=== PATIENT | male | born 1955 | race Caucasian/White ===

== ENCOUNTER → 2019-09-24 | Outpatient (CLI) | payer MEDICAID ==
[2019-09-24 14:45] LABS: Appearance,Urine Clear (Clear); Bilirubin,Urine Negative (Negative); Blood,Urine Negative (Negative); Color,Urine Yellow; Glucose,Urine (UA) Negative (Negative); Ketones,Urine Negative (Negative); Leukocyte Esterase,Urine Negative (Negative); Nitrite,Urine Negative (Negative); Protein,Urine Trace (Negative); Specific Gravity,Urine 1.029 (1.001-1.035); Urobilinogen,Urine <2.0 mg/dL (<2.0)
[2019-09-24 14:57] LABS: Basophils % (A) 0 %; Eosinophils # (A) 0.3 k/uL (0-0.7); Eosinophils % (A) 3 %; HCT 46.5 % (39.0-53.0); HGB 15.3 gm/dL (13.0-17.5); Lymphocytes # (A) 2.3 k/uL (1.0-4.8); Lymphocytes % (A) 27 %; MCH 30.5 pg (25.0-35.0); MCHC 32.9 g/dL (31.0-37.0); MCV 92.6 fL (80.0-100.0); Mean Platelet Volume 7.7; Monocytes # (A) 0.3 k/uL (0-1.0); Monocytes % (A) 4 %; Neutrophils # (A) 5.6 k/uL (1.3-7.7); Neutrophils % (A) 64 %; Platelet Count 229 k/uL (150-450); RBC 5.02 m/uL (4.30-5.90); RDW 11.9 % (11.5-15.5); WBC 8.7 k/uL (3.8-10.6)
--- NOTE | 2019-09-24 15:31 | US ---
EXAMINATION TYPE: US abdomen limited DATE OF EXAM: 09/24/2019 COMPARISON: NONE CLINICAL HISTORY: R10.11 RT UPPER QUADRANT PAIN. EXAM MEASUREMENTS: Liver Length: 13.6 cm Gallbladder Wall: .3 cm CBD: .3 cm Right Kidney: 9.4 x 4.1 x 3.7 cm Pancreas: Head and body appear normal Tail obscured by overlying bowel gas Liver: wnl Gallbladder: Polyps visualized. Evidence for sonographic Cintron's sign: No CBD: wnl Right Kidney: wnl IMPRESSION: 1. Gallbladder polyps
[2019-09-24 18:31] LABS: Albumin 4.3 g/dL (3.80-4.90); Albumin/Globulin Ratio 1.95 (1.60-3.17); Anion Gap 9.4 mmol/L (4.00-12.00); BUN/Creat Ratio 17.78 Ratio (12.00-20.00); Calcium 9.3 mg/dL (8.7-10.3); Carbon Dioxide 24.6 mmol/L (21.6-31.8); Globulin 2.2 g/dL (1.6-3.3); Non-African American GFR(CKD) 90.6 (60.0-200.0); Potassium 4.2 mmol/L (3.5-5.5); Total Bilirubin 0.4 mg/dL (0.2-1.2); Total Protein 6.5 g/dL (6.2-8.2)
== END | disposition home or self-care (01) ==
LOC: LABWHC1 14:10
PROVIDERS: ATTEND Nurse Practitioner Family
DX: R10.11 Right upper quadrant pain (principal); K82.4 Cholesterolosis of gallbladder
CPT/HCPCS: 36415; 76705; 80053; 81003; 82150; 83690; 85025

== ENCOUNTER → 2019-10-30 | Outpatient (CLI) | payer MEDICAID ==
[2019-10-30 09:59] LABS: HGB 15.3 gm/dL (13.0-17.5); MCH 30.8 pg (25.0-35.0); MCHC 33.2 g/dL (31.0-37.0); MCV 92.8 fL (80.0-100.0); Mean Platelet Volume 7.4; Platelet Count 224 k/uL (150-450); RBC 4.96 m/uL (4.30-5.90); RDW 12.2 % (11.5-15.5); WBC 8.2 k/uL (3.8-10.6)
[2019-10-30 17:33] LABS: Chol/HDL Ratio 4.78; LDL Cholesterol,Calculated 101.2 mg/dL (0.0-131.0); VLDL Calculation 49.8 mg/dL (5.00-40.00)
== END | disposition home or self-care (01) ==
LOC: LABWHC1 09:27
PROVIDERS: ATTEND Family Medicine
DX: Z00.01 Encounter for general adult medical examination with abnormal findings (principal); Z13.9 Encounter for screening, unspecified
CPT/HCPCS: 36415; 80061; 84153; 85027; 86803

== ENCOUNTER → 2019-11-02 | Outpatient (CLI) | payer MEDICAID | END | disposition home or self-care (01) | LOC: LABWHC1 11:06 | PROVIDERS: ATTEND Surgery Plastic and Reconstructive Surgery | DX: K80.20 Calculus of gallbladder without cholecystitis without obstruction (principal) | CPT/HCPCS: 36415; 93005 ==

== ENCOUNTER → 2019-12-23 | Outpatient (CLI) | payer MEDICAID | END | disposition home or self-care (01) | LOC: LABWHC1 07:02 | PROVIDERS: ATTEND Surgery Plastic and Reconstructive Surgery | DX: U07.1 COVID-19 (principal) | CPT/HCPCS: 87635 ==

== ENCOUNTER 2019-12-27 08:32 | Day surgery (SDC) | payer MEDICAID ==
[2019-12-24 09:58] VITALS: BMI 23.6
--- NOTE | 2019-12-26 20:21 | P.GSHP ---
History of Present Illness H&P Date: 12/27/19 CHIEF COMPLAINT: History of gallstones. HISTORY OF PRESENT ILLNESS: Дмитрий Knowles is a 64-year-old male who comes in fairly fit. 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 He reports right upper quadrant abdominal pain. As a result, he presents to me in consultation. He also reports having an ultrasound, hence his presentation today. No alleviating factors. PAST MEDICAL HISTORY: See list. PAST SURGICAL HISTORY: See list. MEDICATIONS: See list. ALLERGIES: See list. SOCIAL HISTORY: See list. FAMILY HISTORY: See list. REVIEW OF ORGAN SYSTEMS: Additionally reports: Gastrointestinal: Reports epigastric abdominal pain. Genitourinary: History of prostate cancer treated with experimental drugs. Reports troubles with urination and is on Flomax. HEENT: History of glaucoma. Wears glasses. CONSTITUTIONAL: No fevers or chills. No recent weight loss. EYES: Denies any trouble with vision. No glasses. RESPIRATORY: Denies pneumonia. Denies any troubles with breathing or dyspnea on exertion. CARDIOVASCULAR: Denies any chest pain, palpitations, or recent heart attacks. NEUROLOGICAL: Denies any numbness or tingling along the distal extremities. No seizure disorders or headaches. MUSCULOSKELETAL: Denies any back pain, stiffness or joint arthritis. SKIN: No current skin cancer. No rash. PSYCHIATRIC: Denies current depression or suicidal thoughts. ENDOCRINE: Denies current thyroid disorders. Denies any blood sugar glucose intolerance. HEME/LYMPHATIC: Denies any lumps and bumps around the neck. No recent deep venous thrombosis. ALLERGY/IMMUNOLOGY: No immunoglobulin therapy. No immune deficiencies. BREAST: Denies current breast lumps, pain or nipple discharge. PHYSICAL EXAM: Patient is a 64-year-old male. CONSTITUTIONAL: Well developed and in no acute distress. Vitals reviewed. EYES: Conjuctivae without sclera icterus. Pupils are equally round and reactive to light. Extraocular movements grossly intact. HEAD, EARS, NOSE, THROAT: Moist buccal mucosa. Head is atraumatic, normocephalic. Hears conversational speech. No nasal drainage. NECK: Supple. No JV distention. No thyroidomegaly. RESPIRATORY: Non-labored respirations and equal bilateral excursions. No gross wheezes. CARDIOVASCULAR: Regular rate and rhythm. Extremities without moderate edema. Palpable 2+ radial pulses. ABDOMEN: No hepatomegaly. Soft. Non-tender. Nondistended. LYMPH: No neck lymphadenopathy. No axillary lymphadenopathy. MUSCULOSKELETAL: Nail and fingers with good capillary refill. SKIN: Warm and well perfused with good skin turgor. NEUROLOGIC: Cranial nerves I through XII grossly intact. Sensation upper and extremities intact. No focal or lateralizing signs. PSYCH: Appropriate affect. Alert and oriented to person, place and time. Displays appropriate insight. STUDIES: Ultrasound of the gallbladder was independently reviewed and demonstrated multiple echogenic foci including dependent and non-dependent portion of his gallbladder. LABORATORY: Reviewed and LFTs were within normal limits. Triglycerides were elevated at 249. Hepatitis was normal. Hemoglobin was within normal limits. ASSESSMENT: 1. Gallbladder polyps. 2. Gallstones. PLAN: 1. Robotic cholecystectomy was described. 2. He is at slightly elevated risk for perioperative complications, especially with family history of heart disease. Past Medical History Past Medical History: Eye Disorder, Prostate Disorder Additional Past Medical History / Comment(s): BILAT GLAUCOMA. GALLBLADDER DISORDER History of Any Multi-Drug Resistant Organisms: None Reported Past Surgical History: Hernia Repair, Orthopedic Surgery Additional Past Surgical History / Comment(s): RT KNEE SCOPE Past Anesthesia/Blood Transfusion Reactions: No Reported Reaction Smoking Status: Former smoker - Past Family History Mother Family Medical History: No Reported History Medications and Allergies Home Medications Medication Instructions Recorded Confirmed Type Eye Drops 1 drop BOTH EYES HS 12/24/19 History Tamsulosin [Flomax] 0.4 mg PO DAILY 12/24/19 12/24/19 History Allergies Allergy/AdvReac Type Severity Reaction Status Date / Time mushroom AdvReac Nausea & Verified 12/24/19 09:48 Vomiting procaine [From Novocain] AdvReac Nausea & Verified 12/24/19 09:48 Vomiting
[~2019-12-27 08:32] MED LIST: ACETAMINOPHEN TAB 500 MG TAB PO STA; DEXAMETHASONE SOD PHOSPHATE 10 MG/ML 1 ML VIAL IV ONE; GABAPENTIN 300 MG CAP PO STA; HEPARIN SODIUM,PORCINE 5,000 UNIT/ML 1 ML VIAL SQ ONE; HYDROmorphone 0.5 MG/0.5 ML SYRINGE IVP PRN; INDOCYANINE GREEN 25 MG VIAL IV STA; LACTATED RINGERS 1,000 ML IV SCH; LIDOCAINE 1% (10MG/ML) FOR IV START INTRADERMA PRN; ONDANSETRON 4 MG/2 ML VIAL IVP ONE; TAMSULOSIN 0.4 MG CAP.ER.24H PO STA
[2019-12-27 09:21] LABS: Basophils % (A) 1 %; Eosinophils # (A) 0.4 k/uL (0-0.7); Eosinophils % (A) 5 %; HCT 46.6 % (39.0-53.0); HGB 15.2 gm/dL (13.0-17.5); Lymphocytes % (A) 26 %; MCH 30.4 pg (25.0-35.0); MCHC 32.6 g/dL (31.0-37.0); MCV 93.2 fL (80.0-100.0); Mean Platelet Volume 7.6; Monocytes # (A) 0.4 k/uL (0-1.0); Monocytes % (A) 5 %; Neutrophils # (A) 4.7 k/uL (1.3-7.7); Neutrophils % (A) 61 %; Platelet Count 234 k/uL (150-450); RBC 5.01 m/uL (4.30-5.90); RDW 12.3 % (11.5-15.5); WBC 7.8 k/uL (3.8-10.6)
[2019-12-27 09:25] VITALS: RESP 16
[2019-12-27 09:37] LABS: ALT 24 U/L (4-49); AST 25 U/L (17-59); African American GFR (CKD) >90 (>60 ml/min/1.73 sqM); Albumin 4.1 g/dL (3.5-5.0); Alkaline Phosphatase 84 U/L (38-126); Anion Gap 8 mmol/L; Blood Urea Nitrogen 18 mg/dL (9-20); Calcium 8.9 mg/dL (8.4-10.2); Carbon Dioxide 22 mmol/L (22-30); Chloride 108 mmol/L (98-107); Glucose 101 mg/dL (74-99); Non-African American GFR(CKD) 89 (>60 ml/min/1.73 sqM); Potassium 4.8 mmol/L (3.5-5.1); Sodium 138 mmol/L (137-145); Total Bilirubin 0.4 mg/dL (0.2-1.3); Total Protein 7.3 g/dL (6.3-8.2)
[2019-12-27] MEDS ORDERED: KETOROLAC 30 MG/ML 1 ML VIAL ONE (09:42)
[2019-12-27] MEDS ORDERED: LIDOCAINE 1% INJ 10MG/ML (20 ML MDV) ONE (09:42)
[2019-12-27] MEDS ORDERED: fentaNYL (PF) 50 MCG/ML 2 ML AMP ONE (09:42)
[2019-12-27] MEDS ORDERED: ROCURONIUM BROMIDE 10 MG/ML 5 ML VIAL IV ONE (09:42)
[2019-12-27] MEDS ORDERED: ONDANSETRON 4 MG/2 ML VIAL ONE (09:42)
[2019-12-27] MEDS ORDERED: ePHEDrine SULFATE/0.9% NACL/PF 50 MG/5 ML SYRINGE IV ONE (09:42)
[2019-12-27] MEDS ORDERED: SUCCINYLCHOLINE CHLORIDE 100 MG/5 ML SYR IV ONE (09:42)
[2019-12-27] MEDS ORDERED: PROPOFOL 10 MG/ML 20 ML VIAL IV ONE (09:42)
[2019-12-27] MEDS ORDERED: GLYCOPYRROLATE 0.2 MG/ML 2 ML VIAL ONE (09:42)
[2019-12-27] MEDS ORDERED: INDOCYANINE GREEN 25 MG VIAL IV ONE (09:42)
[2019-12-27] MEDS ORDERED: MIDAZOLAM 2 MG/2 ML VIAL ONE (09:42)
[2019-12-27] MEDS ORDERED: NEOSTIGMINE 1 MG/ML 10 ML VIAL ONE (09:42)
[2019-12-27] MEDS ORDERED: BUPIVACAIN-EPI 0.25%-1:200,000 30 ML VIAL SQ ONE ×2 (10:01→10:05)
[2019-12-27 10:53] VITALS: TEMP 97.2
[2019-12-27 12:25] VITALS: BP 143/71; PULSE 67
--- NOTE | 2019-12-29 19:05 | P.OP ---
Date of Procedure: 12/27/19 Description of Procedure: SURGEON: TAYLOR MARES MD PREOPERATIVE DIAGNOSES: 1. Right upper quadrant abdominal pain 2. Symptomatic gallstones 3. Chronic cholecystitis 4. Obstructive uropathy POSTOPERATIVE DIAGNOSES: 1. Right upper quadrant abdominal pain 2. Symptomatic gallstones 3. Chronic cholecystitis 4. Obstructive uropathy OPERATION: Robotic-assisted da Ari Xi laparoscopic cholecystectomy, multiport with FIREFLY ESTIMATED BLOOD LOSS: 5 mL. SPECIMENS REMOVED: Gallbladder. COMPLICATIONS: None. OPERATIVE FINDINGS: 1. Chronic cholecystitis INDICATIONS: The patient is a 64-year-old male who presents with cholelcystitis. Surgical intervention with a laparoscopic cholecystectomy was described. Robotic assisted laparoscopic approach was described. Benefits and risks of the procedure including but not limited to bleeding, infection, injury to the biliary tree was described. Informed consent was obtained. DESCRIPTION OF PROCEDURE: Patient was brought to the operating room, placed in supine position. After general induction, the abdomen had been prepped and draped in standard sterile fashion. The robotic da Ari XI system was primed. After a timeout protocol was performed, the patient had been prepped and draped in standard sterile fashion. The patient was injected with indocyanine green. A 5 mm 0 degrees laparoscopic trocar entry was performed along the left upper quadrant. The abdomen insufflated to 15 mmHg pressure which was tolerated well. Diagnostic laparoscopy demonstrated no injury to bowel viscera or mesentery. The liver surface was unremarkable. Next, two 8 mm robotic ports were placed along the right upper abdomen. The camera 8-mm port was maintained along the epigastrium. Another 8 mm port was placed along the left upper abdominal wall after exchanging the 5 mm port. Please note that the ports were placed at least 10 to 15 cm away from the target anatomy of the gallbladder. The robot was docked along the left lateral abdomen. The patient was repositioned in reverse Trendelenburg position. Using a grasper for arm 3, a grasper for arm 4, including hook cautery for arm 1, the robotic system was docked and primed as described. Instruments were interchanged by the assistant press operator including hook cautery, Bovie cautery and clip appliers. I had sat at the console. The gallbladder fundus was retracted over the dome of the liver. Initial attention was brought to the infundibulum including cystic lymph node. Initial dissection was performed over the cystic lymph node at the infundibulum using hook cautery. The infundibulum was retracted laterally to expose the cystic duct away from the common bile duct. The cystic duct including the cystic artery were dissected free from its surrounding tissue. FIREFLY was used to identify the cystic artery and cystic structures. A critical view of safety was obtained. Large PLASTIC clips were used throughout the entire case. Using a clip mounter automatic, 2 clips were placed along the cystic duct away from the common bile duct. The cystic duct was divided between clips.. Next, the cystic artery was similarly clipped and cauterized. Electro-Bovie cautery was used to remove the gallbladder from the hepatic fossa. Hemostasis was checked and found to be adequate. The robot was undocked. I re-scrubbed into the case. Using a 10 mm Endo Catch bag via the left upper quadrant incision, the specimen was removed from the abdominal cavity. All pneumoperitoneum instruments were evacuated from the abdominal cavity. The incisions were reapproximated using 4-0 Monocryl in an interrupted subcuticular fashion. Fascial defects were less than 8 mm in size. Please note along the trocar sites, local anesthetic was placed as a field block prior to insertion of all instruments. Liquid glue was applied to the skin. At the end of the procedure needle, sponge, and instrument count had been verified correct by the registered diet technician. The patient was transferred to postanesthesia care unit in stable condition. Intraoperative films were shared with the patient's family who were pleased with the level of care. Plan - Discharge Summary Discharge Rx Participant: Yes New Discharge Prescriptions: New Ibuprofen [Motrin] 600 mg PO Q8HR PRN #30 tab PRN Reason: Pain Acetaminophen Tab [Tylenol Tab] 1,000 mg PO Q6HR PRN #30 tablet PRN Reason: Pain No Action Tamsulosin [Flomax] 0.4 mg PO DAILY Eye Drops 1 drop BOTH EYES HS Discharge Medication List Eye Drops 1 drop BOTH EYES HS 12/24/19 [History] Tamsulosin [Flomax] 0.4 mg PO DAILY 12/24/19 [History] Acetaminophen Tab [Tylenol Tab] 1,000 mg PO Q6HR PRN #30 tablet 12/27/19 [Rx] Ibuprofen [Motrin] 600 mg PO Q8HR PRN #30 tab 12/27/19 [Rx] Follow up Appointment(s)/Referral(s): Taylor Mares MD [STAFF PHYSICIAN] - 01/04/20 (YOU WILL NEED TO CALL TO SCHEDULE YOUR FOLLOW UP APPOINTMENT) Patient Instructions/Handouts: *Surgery [facility] - (Anesthesia) Discharge Instructions Outpatient Surgery, Laparoscopic Cholecystectomy (DC) Activity/Diet/Wound Care/Special Instructions: No lifting over 10 pounds in 2 weeks until January 09. May shower. No bath tub soaks for two weeks until January 09. Diet as tolerated. Use Tylenol and ibuprofen or Aleve scheduled for the next 24-48 hours for best pain relief. Use ice along incisions for the today to prevent swelling. Discharge Disposition: HOME SELF-CARE
== END 2019-12-27 12:29 | disposition home or self-care (01) ==
LOC: OR 08:32
PROVIDERS: ATTEND Surgery Plastic and Reconstructive Surgery
DX: K81.1 Chronic cholecystitis (principal); N13.9 Obstructive and reflux uropathy, unspecified; H40.9 Unspecified glaucoma; E78.1 Pure hyperglyceridemia; K08.109 Complete loss of teeth, unspecified cause, unspecified class; Z88.4 Allergy status to anesthetic agent; Z91.018 Allergy to other foods; Z85.46 Personal history of malignant neoplasm of prostate; Z79.899 Other long term (current) drug therapy; Z97.3 Presence of spectacles and contact lenses; Z98.890 Other specified postprocedural states; Z87.891 Personal history of nicotine dependence; Z82.49 Family history of ischemic heart disease and other diseases of the circulatory system
CPT/HCPCS: 47562; S2900; 80053; 85025; 88304

== ENCOUNTER → 2020-01-04 | Outpatient (CLI) | payer MEDICAID ==
--- NOTE | 2020-01-04 19:40 | CT ---
EXAMINATION TYPE: CT abdomen pelvis w con DATE OF EXAM: 01/04/2020 COMPARISON: Ultrasound abdomen limited September 24, 2019. HISTORY: Post OP Brandy 1 week. RUQ tenderness and Left inguinal pain. Prior inguinal hernia repair 7-8 years ago. Diverticulitis per order. CT DLP: 831.7 mGycm, Automated Exposure Control for Dose Reduction was Utilized. CONTRAST: CT scan of the abdomen and pelvis is performed with oral and with IV Contrast, patient injected with 100 mL of Isovue 300. FINDINGS: LUNG BASES: No significant abnormality is appreciated. LIVER/GB: Gallbladder now not seen consistent with interval cholecystectomy. Visualized liver heterog eneously hypodense consistent with diffuse fatty infiltration as identified on recent ultrasound. No new intrahepatic or extra hepatic biliary dilatation. PANCREAS: Slight bulkiness and fullness of the pancreas without surrounding fat stranding or areas of nonenhancement. Presumed normal variant. SPLEEN: No significant abnormality is seen. ADRENALS: No significant abnormality is seen. KIDNEYS: Symmetric or medullary uptake and excretion from both kidneys without hydronephrosis seen bi laterally. Roughly 1.0 cm thin-walled cyst posteriorly lower pole of the left kidney axial image 36 s eries 301 BOWEL: Oral contrast reaches the level of the hepatic flexure again evaluation of distal bowel subopt imal. No suspicious small or large bowel dilatation. Redundancy of sigmoid colon is present. No signi ficant diverticulosis or CT evidence for acute diverticulitis. PROSTATE/SEMINAL VESICLES: Mildly enlarged prostate gland bulging of bladder base. Underlying BPH linda pected. Correlate clinically. LYMPH NODES: No greater than 1cm abdominal or pelvic lymph nodes are appreciated. Some prominent but subcentimeter lymph nodes in the bilateral groin region. OSSEOUS STRUCTURES: Mild to moderate multilevel spurring in the visualized thoracolumbar spine. Mild to moderate axial joint space loss with mild acetabular spurring in both hips. OTHER: Moderately mixed plaque of the aorta extends into branch vessels. Focal mild areas of fat stra nding in the anterior abdominal wall likely product of scarring from ports for laparoscopic surgery. Tiny fat-containing left inguinal hernia axial image 80. IMPRESSION: 1. Tiny fat-containing left inguinal hernia. 2. No significant diverticulosis or CT evidence for acute diverticulitis. No suspicious acute finding s evident.
== END | disposition home or self-care (01) ==
LOC: RADCTMAIN 15:24
PROVIDERS: ATTEND Surgery Plastic and Reconstructive Surgery
DX: K40.90 Unilateral inguinal hernia, without obstruction or gangrene, not specified as recurrent (principal)
CPT/HCPCS: 74177; Q9967

== ENCOUNTER 2022-03-14 08:52 | Day surgery (SDC) | payer MEDICAID, OTHER ==
[2022-03-13 10:07] VITALS: BMI 24.2
--- NOTE | 2022-03-14 07:25 | P.GSHP ---
History of Present Illness H&P Date: 03/14/22 CHIEF COMPLAINT: Colon screen HISTORY OF PRESENT ILLNESS: The patient is a 66-year-old male who presents for colon screen. Lower endoscopy was offered for further evaluation and management. PAST MEDICAL HISTORY: Please see list. PAST SURGICAL HISTORY: Please see list. MEDICATIONS: Please see list. ALLERGIES: Please see list. SOCIAL HISTORY: No illicit drug use FAMILY HISTORY: No reports of Crohn disease or ulcerative colitis. REVIEW OF ORGAN SYSTEMS: CONSTITUTIONAL: No reports of fevers or chills. PHYSICAL EXAM: VITAL SIGNS: Stable GENERAL: Well-developed pleasant in no acute distress. HEENT: No scleral icterus. Extraocular movements grossly intact. Moist buccal mucosa. NECK: Supple without lymphadenopathy. CHEST: Unlabored respirations. Equal bilateral excursions. CARDIOVASCULAR: Regular rate and rhythm. Distal 2+ pulses. ABDOMEN: Soft, nontender, nondistended. MUSCULOSKELETAL: No clubbing, cyanosis, or edema. ASSESSMENT: 1. Colon screen. PLAN: 1. Recommend proceeding with a lower endoscopy Past Medical History Past Medical History: Eye Disorder, Prostate Disorder Additional Past Medical History / Comment(s): BILAT GLAUCOMA History of Any Multi-Drug Resistant Organisms: None Reported Past Surgical History: Hernia Repair, Orthopedic Surgery Additional Past Surgical History / Comment(s): RT KNEE SCOPE. BILAT CATARACTS REMOVED WITH LENS IMPLANTS AND EYE STENTS FOR GLAUCOMA. COLONOSCOPY Past Anesthesia/Blood Transfusion Reactions: No Reported Reaction Smoking Status: Former smoker - Past Family History Mother Family Medical History: No Reported History Medications and Allergies Home Medications Medication Instructions Recorded Confirmed Type Eye Drops 1 drop BOTH EYES HS 12/24/19 03/13/22 History Tamsulosin [Flomax] 0.4 mg PO DAILY 12/24/19 03/13/22 History Omeprazole 20 mg PO DAILY 03/13/22 03/13/22 History Allergies Allergy/AdvReac Type Severity Reaction Status Date / Time mushroom AdvReac Nausea & Verified 03/13/22 09:58 Vomiting procaine [From Novocain] AdvReac Nausea & Verified 03/13/22 09:58 Vomiting
[~2022-03-14 08:52] MED LIST changes: -ACETAMINOPHEN TAB 500 MG TAB PO STA; -DEXAMETHASONE SOD PHOSPHATE 10 MG/ML 1 ML VIAL IV ONE; -GABAPENTIN 300 MG CAP PO STA; -HEPARIN SODIUM,PORCINE 5,000 UNIT/ML 1 ML VIAL SQ ONE; -HYDROmorphone 0.5 MG/0.5 ML SYRINGE IVP PRN; -INDOCYANINE GREEN 25 MG VIAL IV STA; -LIDOCAINE 1% (10MG/ML) FOR IV START INTRADERMA PRN; -ONDANSETRON 4 MG/2 ML VIAL IVP ONE; -TAMSULOSIN 0.4 MG CAP.ER.24H PO STA
[2022-03-14 09:24] VITALS: RESP 18; TEMP 96.8
[2022-03-14] MEDS ORDERED: PROPOFOL 10 MG/ML 20 ML VIAL IV ONE (10:05)
--- NOTE | 2022-03-14 11:26 | P.PCN ---
Date of Procedure: 03/14/22 Description of Procedure: PREOPERATIVE DIAGNOSIS: Personal history of colon polyps Family history malignant colon polyps Colonoscopy screening POSTOPERATIVE DIAGNOSIS: Personal history of colon polyps Family history malignant colon polyps Colonoscopy screening Tubular adenoma hepatic flexure Tubular adenoma transverse colon Sigmoid diverticulosis Internal hemorrhoids, grade 2 OPERATION: Colonoscopy to the ileocecal valve and appendiceal orifice, cecum Colonoscopy with hot snare polypectomy Colonoscopy with cold forceps biopsy SURGEON: Taylor Mares MD. ANESTHESIA: MAC. INDICATIONS: The patient is an 65-year-old male who presents family history of malignant colon polyps and personal history of colon polyps. Last colonoscopy 5 years. Benefits and risks were described and informed consent was obtained. DESCRIPTION OF PROCEDURE: The patient had undergone Sutab prep. The patient had been brought into the operating room and laid in the left lateral decubitus position. After adequate intravenous sedation, the rectum was examined with 2% lidocaine jelly. The prostate was unremarkable. External hemorrhoids were encountered. The rectal tone was within normal limits. No lesions were palpated in the rectal vault. An Olympus colonoscope was advanced until the cecum, ileocecal valve and appendiceal orifice were clearly viewed. The prep was fair. Sigmoid diverticulosis was encountered. Colonic polyps were found and removed. No evidence of focal colitis was found. Retroflexion of the scope demonstrated grade 2 internal hemorrhoids without active bleeding or inflammation. The colon was desufflated. The patient had tolerated the procedure well. Withdrawal time was over 6 minutes. FINDINGS: Aronchick preparation quality scale 1 (1-5) Internal hemorrhoids, grade 3 with recent inflammation and bleeding External hemorrhoids, grade 4. No arteriovenous malformations. Sigmoid diverticulosis Removal of 1 polyp: - Cold forceps biopsy at 30 cm from the anal verge, 4 mm polyp, descending colon No focal colitis. RECOMMENDATIONS: Repeat colonoscopy 5 years, 2026 Plan - Discharge Summary Discharge Rx Participant: No New Discharge Prescriptions: Continue Tamsulosin [Flomax] 0.4 mg PO DAILY Omeprazole 20 mg PO DAILY cycloSPORINE 0.05% OPHTH SOLN [Restasis] 1 applicator BOTH EYES Q12H Discharge Medication List Tamsulosin [Flomax] 0.4 mg PO DAILY 12/24/19 [History] Omeprazole 20 mg PO DAILY 03/13/22 [History] cycloSPORINE 0.05% OPHTH SOLN [Restasis] 1 applicator BOTH EYES Q12H 03/14/22 [History] Follow up Appointment(s)/Referral(s): Taylor Mares MD [STAFF PHYSICIAN] - As Needed Patient Instructions/Handouts: Colorectal Polyps (GEN), Colonoscopy (DC) Activity/Diet/Wound Care/Special Instructions: Repeat colonoscopy in 5 years, 2026 Discharge Disposition: HOME SELF-CARE
[2022-03-14 11:31] VITALS: BP 108/62; PULSE 57
== END 2022-03-14 11:45 | disposition home or self-care (01) ==
LOC: ORWHC2ENDO 08:52
PROVIDERS: ATTEND Surgery Plastic and Reconstructive Surgery
DX: Z12.11 Encounter for screening for malignant neoplasm of colon (principal); K63.5 Polyp of colon; K57.30 Diverticulosis of large intestine without perforation or abscess without bleeding; K64.4 Residual hemorrhoidal skin tags; K64.2 Third degree hemorrhoids; Z86.010 Personal history of colon polyps; Z80.0 Family history of malignant neoplasm of digestive organs; K21.9 Gastro-esophageal reflux disease without esophagitis; H40.9 Unspecified glaucoma; N40.0 Benign prostatic hyperplasia without lower urinary tract symptoms; Z98.890 Other specified postprocedural states; Z87.891 Personal history of nicotine dependence; Z79.899 Other long term (current) drug therapy; Z88.4 Allergy status to anesthetic agent; Z91.018 Allergy to other foods
CPT/HCPCS: 88305; 45380; J2704